=== PATIENT | female | born 1975 | race American Indian/Alaskan Native ===

== ENCOUNTER 2022-05-05 15:12 | Emergency (ER) | payer OTHER ==
[2022-05-05 15:46] VITALS: BP 183/104
[2022-05-05] MEDS ORDERED: HEPARIN 10,000 UNITS/10 ML VIAL IV PRN ×2 (15:54→16:00)
[2022-05-05] MEDS ORDERED: SODIUM CHLORIDE 0.9% 1000 ML 1,000 ML IV ONE (16:00)
[2022-05-05 16:42] LABS: Basophils # (Auto) 0.1 K/mm3 (0.0-0.1); Basophils % (Auto) 0.9 % (0.0-1.8); Eosinophils # (Auto) 0.1 K/mm3 (0.0-0.4); Eosinophils % (Auto) 0.9 % (0.0-4.3); Hematocrit 28.1 % (30.3-42.9); Hemoglobin 9.3 gm/dl (10.1-14.3); Lymphocytes # (Auto) 1.5 K/mm3 (1.2-5.4); Lymphocytes % (Auto) 14.9 % (13.4-35.0); Mean Corpuscular HGB Conc 33 % (30-34); Monocytes # (Auto) 0.7 K/mm3 (0.0-0.8); Monocytes % (Auto) 6.8 % (0.0-7.3); Platelet Count 217 K/mm3 (140-440); Red Blood Count 4.08 M/mm3 (3.65-5.03)
[2022-05-05 16:47] LABS: Mean Corpuscular Volume 69 fl (79-97); Red Cell Distribution Width 20.3 % (13.2-15.2)
[2022-05-05 16:58] LABS: INR 0.82 (0.87-1.13)
--- NOTE | 2022-05-05 17:06 | XRay Report ---
CHEST 2 VIEWS INDICATION / CLINICAL INFORMATION: Dysrhythmia. COMPARISON: None available. FINDINGS: SUPPORT DEVICES: None. HEART / MEDIASTINUM: No significant abnormality. LUNGS / PLEURA: No significant pulmonary or pleural abnormality. No pneumothorax. ADDITIONAL FINDINGS: None IMPRESSION: 1. No acute chest process. Signer Name: Chris Howard MD Signed: 05/05/2022 5:02 PM Workstation Name: [employer]
[2022-05-05 17:27] LABS: Alanine Aminotransferase 22 units/L (7-56); Albumin 4.3 g/dL (3.9-5); Blood Urea Nitrogen 12 mg/dL (7-17); Calcium 8.8 mg/dL (8.4-10.2); Hemolysis Index 2
[2022-05-05 17:32] LABS: BUN/Creatinine Ratio 17
[2022-05-05] MEDS ORDERED: METOPROLOL TARTRATE 5 MG/5 ML INJ IV ONE (17:35)
--- NOTE | 2022-05-05 18:56 | Emergency Department Report ---
ED Palpitations HPI - General Chief Complaint: Arrhythmia/Palpitations Stated Complaint: HYPERTENSION Time Seen by Provider: 05/05/22 16:00 Source: patient, EMS Mode of arrival: Stretcher Limitations: No Limitations - History of Present Illness Initial Comments: pt reports chest palp today, reports that she takes propranolol for palpitations at night, reports heart rate as bassam as 106 today pt has graves disease , had suregy dne and currently on thyroxine and propranolol at night she doens;t remeber if she took it last night or not but today she is tired and having rapid heart rate no sob or chets pain -: Gradual, hour(s) Context: occured during rest Associated Symptoms: denies: denies other symptoms, syncope, near-syncope, nausea/vomiting, diaphoresis, muscle cramps - Related Data Home Medications Medication Instructions Recorded Confirmed Last Taken atenoloL [Tenormin] 50 mg PO DAILY 09/03/15 09/03/15 09/03/15 methIMAzole [Methimazole] 10 mg PO DAILY 09/03/15 09/03/15 09/03/15 Previous Rx's Medication Instructions Recorded Last Taken Type HYDROcodone/APAP 5-325 [[place] 1 each PO Q6HR PRN #10 tablet 09/04/15 Unknown Rx 5/325] Allergies Allergy/AdvReac Type Severity Reaction Status Date / Time Iodinated Contrast Media AdvReac Unknown Verified 05/05/22 15:46 [Iodinated Contrast Media - IV Dye] ED Review of Systems ROS: Stated complaint: HYPERTENSION Other details as noted in HPI Constitutional: denies: chills, fever Eyes: denies: eye pain, eye discharge, vision change ENT: denies: ear pain, throat pain Respiratory: denies: cough, shortness of breath, wheezing Cardiovascular: denies: chest pain, palpitations Endocrine: no symptoms reported Gastrointestinal: denies: abdominal pain, nausea, diarrhea Genitourinary: denies: urgency, dysuria, discharge Musculoskeletal: denies: back pain, joint swelling, arthralgia Skin: denies: rash, lesions Neurological: denies: headache, weakness, paresthesias Psychiatric: denies: anxiety, depression Hematological/Lymphatic: denies: easy bleeding, easy bruising ED Past Medical Hx - Past Medical History Previous Medical History?: No Hx Hypertension: No Additional medical history: graves disease - Surgical History Additional Surgical History: tubal ligation, x2, D&C, lumpectomy from breast, thyroidectomy - Social History Smoking Status: Never Smoker Substance Use Type: Alcohol - Medications Home Medications: Home Medications Medication Instructions Recorded Confirmed Last Taken Type atenoloL [Tenormin] 50 mg PO DAILY 09/03/15 09/03/15 09/03/15 History methIMAzole [Methimazole] 10 mg PO DAILY 09/03/15 09/03/15 09/03/15 History HYDROcodone/APAP 5-325 [[place] 1 each PO Q6HR PRN #10 tablet 09/04/15 Unknown Rx 5/325] ED Physical Exam - General Limitations: No Limitations General appearance: alert, in no apparent distress - Head Head exam: Present: atraumatic, normocephalic - Eye Eye exam: Present: normal appearance - ENT ENT exam: Present: mucous membranes moist - Neck Neck exam: Present: normal inspection - Respiratory Respiratory exam: Present: normal lung sounds bilaterally. Absent: respiratory distress - Cardiovascular Cardiovascular Exam: Present: normal rhythm, tachycardia. Absent: systolic murmur, diastolic murmur, rubs, gallop - GI/Abdominal GI/Abdominal exam: Present: soft, normal bowel sounds - Extremities Exam Extremities exam: Present: normal inspection - Back Exam Back exam: Present: normal inspection - Neurological Exam Neurological exam: Present: alert, oriented X3 - Psychiatric Psychiatric exam: Present: normal affect, normal mood - Skin Skin exam: Present: warm, dry, intact, normal color. Absent: rash ED Course Vital Signs 05/05/22 15:36 Temperature 99.0 F Pulse Rate 106 H Respiratory 16 Rate Blood Pressure 183/104 [Left] O2 Sat by Pulse 98 Oximetry ED Medical Decision Making - Lab Data Result diagrams: 05/05/22 16:17 05/05/22 16:17 - EKG Data -: EKG Interpreted by [facility] EKG shows normal: sinus rhythm Rate: tachycardia - EKG Data Interpretation: other ([facility]) - Radiology Data Radiology results: report reviewed, image reviewed - Medical Decision Making work up showed anemia , her husand gave him propranolol and hR is down , vss BP imrpoved, refused CTA , Critical care attestation.: If time is entered above; I have spent that time in minutes in the direct care of this critically ill patient, excluding procedure time. ED Disposition Clinical Impression: Palpitation, Anemia Disposition: 01 HOME / SELF CARE / HOMELESS Is pt being admited?: No Does the pt Need Aspirin: No Condition: Stable Instructions: Palpitations, [id number], Complete Blood Count
--- NOTE | 2022-05-06 10:23 | Electrocardiograph Report ---
[facility] Test Date: 2022-05-05 Test Time: 15:47:50 Pat Name: MAU ACEVEDO Department: Room: Gender: F Paid Search Specialist: TRELL : 1975 Requested By: TONY HERNANDEZ Order Number: [id number] Reading MD: Tushar [place] Measurements Intervals [place] Rate: 94 P: 61 RI: 172 QRS: 28 QRSD: 61 T: 46 QT: 364 QTc: 456 Interpretive Statements Sinus rhythm Left atrial enlargement No previous ECG available for comparison Electronically Signed On 05-06-2022 10:23:50 EDT by Tushar [place]
== END 2022-05-06 04:46 | disposition home or self-care (01) ==
LOC: ED 15:12
DX: R00.2 Palpitations (principal); D64.9 Anemia, unspecified; Z91.09 Other allergy status, other than to drugs and biological substances
CPT/HCPCS: 36415; 71046; 80053; 84484; 85025; 85379; 85610; 93005; 99284